=== PATIENT | male | born 1955 ===

== ENCOUNTER 2017-02-28 14:32 | Emergency (ER) | payer OTHER ==
[2017-02-28] MEDS ORDERED: Albuterol/Ipratropium NEB.SOL* Albuterol 2.5 MG/Ipratropium 0.5 MG 3 ML INH ONE (15:36)
[2017-02-28 16:14] VITALS: BP 147/89
--- NOTE | 2017-02-28 16:28 | RAD ---
INDICATION: Chronic cough. Shortness of breath. Wheezing. COMPARISON: No relevant prior exams available on the [facility] [place]. TECHNIQUE: Dual energy PA and routine lateral views of the chest were obtained. REPORT: Clear lungs and pleural spaces. Small calcified RIGHT hilar lymph nodes corresponding with history of TB. Negative for cardiomegaly. Unremarkable central pulmonary vasculature. Unremarkable osseous structures. IMPRESSION: Stigmata of prior granulomatous disease. No acute cardiopulmonary process evident.
--- NOTE | 2017-02-28 17:29 | UC ---
Respiratory Complaint HPI - HPI Summary HPI Summary: PATIENT IS FROM [facility]. HAS HAD 6 MONTHS OF WHEEZING DRY COUGH AND SHORTNESS OF BREATH. IS BEING WORKED UP BY PRIMARY CARE IN [place]. HAS HAD SEVERAL CHEST XRAYS, EKGS WITH NO FINDINGS. THOUGHT HE HAD ALLERGIES. CAME HERE ONE WEEK AGO, FELT A BIT BETTER, BUT LAST NIGHT DEVELOPED COUGH AND WHEEZING AGAIN. DOES NOT WANT TO GO TO EMERGENCY DEPARTMENT. NO FEVER. - History of Current Complaint Chief Complaint: UCRespiratory Stated Complaint: COUGH WHEEZING Time Seen by Provider: 02/28/17 15:21 Hx Obtained From: Patient, Family/[place] Worker Onset/Duration: Gradual Onset, Lasting Weeks - 6 MONTHS, Worse Since - LAST THREE DAYS AFTER SHORT PERIOD OF RESOLUTION Pain Intensity: 0 Pain Scale Used: 0-10 Numeric Character: Cough: Nonproductive Aggravating Factors: Deep Breaths, Recumbent Position Alleviating Factors: Bronchodilator Associated Signs And Symptoms: Positive: Wheezing, URI. Negative: Dyspnea, Fever, Chills, Pleuritic Chest Pain, Hemoptysis, Dizziness, Calf Pain, Calf Swelling, Edema, Nasal Congestion, Hoarseness, Sinus Discomfort - Risk Factors Pulmonary Embolism Risk Factors: Negative Cardiac Risk Factors: Negative Pseudomonas Risk Factors: Negative Tuberculosis Risk Factors: Negative - Allergies/Home Medications Allergies/Adverse Reactions: Allergies Allergy/AdvReac Type Severity Reaction Status Date / Time No Known Allergies Allergy Verified 02/28/17 14:56 Home Medications: Home Medications Albuterol HFA INHALER* [Ventolin HFA Inhaler*] 2 puff INH Q6HR 02/28/17 [ History Confirmed 02/28/17] PMH/Surg Hx/FS Hx/Imm Hx Previously Healthy: Yes - Surgical History Surgical History: Yes Surgery Procedure, Year, and Place: Back - Family History Known Family History: Negative: Respiratory Disease - Social History Occupation: Employed Full-time Lives: With Family Alcohol Use: Occasionally Substance Use Type: None Smoking Status (MU): Never Smoked Tobacco Review of Systems Constitutional: Negative Skin: Negative Eyes: Negative ENT: Negative Respiratory: Cough Cardiovascular: Negative Gastrointestinal: Negative Genitourinary: Negative Motor: Negative Neurovascular: Negative Musculoskeletal: Negative Neurological: Negative Psychological: Negative Is Patient Immunocompromised?: No All Other Systems Reviewed And Are Negative: Yes Physical Exam Triage Information Reviewed: Yes Appearance: Well-Appearing, No Pain Distress, Well-Nourished Vital Signs: Initial Vital Signs Temp 98.4 F 02/28/17 14:52 Pulse 89 02/28/17 14:52 Resp 18 02/28/17 14:52 BP 143/90 02/28/17 14:52 Pulse Ox 96 02/28/17 14:52 Vital Signs Reviewed: Yes Eye Exam: Normal ENT Exam: Normal ENT: Positive: Normal ENT inspection, Pharynx normal, TMs normal Dental Exam: Normal Neck exam: Normal Neck: Positive: Supple, Nontender, No Lymphadenopathy Respiratory: Positive: Chest non-tender, No respiratory distress, No accessory muscle use, Wheezing Cardiovascular Exam: Normal Cardiovascular: Positive: RRR, No Murmur, Pulses Normal, Brisk Capillary Refill Abdominal Exam: Normal Abdomen Description: Positive: Nontender, No Organomegaly, Soft. Negative: CVA Tenderness (R), CVA Tenderness (L) Musculoskeletal Exam: Normal Musculoskeletal: Positive: Strength Intact, ROM Intact Neurological Exam: Normal Psychological Exam: Normal Skin Exam: Normal UC Diagnostic Evaluation - Laboratory O2 Sat by Pulse Oximetry: 95 - Radiology Radiology Interpretation Completed By: Radiologist - STIGMATA OF GRANULOMATOUS DISEASE. NO ACUTE CARDIOPULMONARY PROCESS EVIDENT Respiratory Course/Dx - Differential Dx/Diagnosis Differential Diagnosis/HQI/PQRI: Asthma, Bronchitis, Influenza, Laryngitis, Sinusitis, Tuberculosis Provider Diagnoses: GRANULOMATOUS DISEASE Discharge - Discharge Plan Condition: Stable Disposition: HOME Prescriptions: Albuterol HFA INHALER* [Ventolin HFA Inhaler*] 1 - 2 puff INH Q4H PRN #1 mdi PRN Reason: Wheezing Patient Education Materials: Tuberculosis (ED), Sarcoidosis (ED) Referrals: No Primary Care Phys,NOPCP [Primary Care Provider] - Additional Instructions: IF YOUR SYMPTOMS RECUR PLEASE SEEK EVALUATION AT THE EMERGENCY DEPARTMENT FOR CONTINUED EVALUATION. WHEN YOU RETURN HOME PLEASE CONSULT YOUR PRIMARY CARE PHYSICIAN AND SEEK A PROMPT REFERRAL WITH A BES[employer]ER CONVERTER OPERATOR
== END 2017-02-28 16:58 | disposition home or self-care (01) ==
LOC: UCEAST 14:32
DX: D71 Functional disorders of polymorphonuclear neutrophils (principal); R06.2 Wheezing; R05 Cough
CPT/HCPCS: 71020; 99202; A9270-GY; G0463